=== PATIENT | male | born 1960 | race Caucasian/White ===

== ENCOUNTER 2018-02-12 16:24 | Observation (INO) ==
--- NOTE | 2018-02-12 17:03 | History & Physical Report ---
*Admission Date: 02/12/18 *Chief complaint: Chest pain *History of present illness: 57-year-old white male with history of hypertension, recent opioid withdrawal/ cessation and history of smokeless tobacco use who presented to my office today with chest pressure and pain associated with some palpitations and flushing. He had been seen a couple days ago and EKG was normal at that time in the context of treating some withdrawal symptoms. He has recently had a really rough time with strict use of opioids but has been abstinent for 2 weeks. Couple of days ago he was placed on propranolol, as needed Zofran had been doing well. This afternoon he was driving his grandson home from school and had the onset of chest pressure with flushing, felt like his heart was racing. Once his blood pressure checked again in the office. He was found to be flush, his chest pain in the way of his blood pressure was elevated over a reading 2 days ago. EKG was unchanged. However, given his significant risk factors for cardiac disease, history of hyperlipidemia, family history and tobacco use he has been to the hospital for rule out MO and ongoing cardiology evaluation. [facility] History I have reviewed the patient's past medical history: Yes Medical History: Reports:: Anxiety, Hypertension Comment: Opioid/narcotic addiction Other Surgeries: Yes: No Previous Surgery - *Social History Educational Level: Completed High School Tobacco Type: smokeless tobacco Alcohol Intake: never Substance Use Type: former substance user, opiates Last Used Substance: days (ago) (Last used 2 weeks ago per patient) Review of Systems - Review of Systems Review of systems:: unable to obtain, other, pertinent systems reviewed and negative unless documented below - Eyes Denies blurry vision - ENT Denies poor balance, Denies dizziness - *Cardiovascular Reports chest pain, Reports chest pain at rest, Reports excessive sweating, Reports shortness of breath, Reports rapid, pounding, or irregular heartbeat, Denies leg swelling - *Respiratory Reports chest congestion, Reports cough - *Gastrointestinal Denies abdominal pain, Denies change in stools, Denies heartburn - *Genitourinary Denies difficulty urinating Exam Narrative: Pressure 150/90, pulse rate 88. O2 saturations 97% on room air in the office. Respiratory rate 12. Patient is flushed but otherwise alert, oriented, pleasant. No JVD, carotid bruit. Heart rate is regular without murmurs or gallops. No edema, no clubbing, abdomen soft nontender. Neurologic exam intact. Assessment and Plan (1) Pain in the chest Current visit: Yes Status: Acute Category: Medical Code(s): R07.9 - Chest pain, unspecified We will be to admit observation, cardiac monitor technician. Chest x-ray, EKG, serial enzymes, continue beta blockade. Aspirin therapy, cardiology evaluation.
[2018-02-12 17:31] LABS: Basophils # 0.1 K/mm3 (0-0.2); Basophils % 0.5 % (0.1-2.0); Eosinophils # 0.3 K/mm3 (0.0-0.4); Eosinophils % 2.3 % (0.1-12.0); Hemoglobin 15.6 g/dL (14.1-18.0); Lymphocytes # 3.3 K/mm3 (0.7-4.5); Mean Corpuscular HGB Conc 34.7 g/dL (31.8-35.4); Mean Corpuscular Hemoglobin 31.2 pg (27.0-31.2); Mean Platelet Volume 7.3 fl (7.4-10.4); Monocytes # 0.9 K/mm3 (0.1-1.0); Monocytes % 6.8 % (1.7-9.3); Neutrophils # 8.1 K/mm3 (1.8-7.8); Neutrophils % 64.4 % (37.0-80.0); Platelet Count 291 K/mm3 (142-424); Red Cell Distribution Width 12.4 % (11.5-17.5); White Blood Count 12.6 K/mm3 (4.8-10.8)
[2018-02-12 17:50] LABS: Chol/HDL Ratio 3.4 (1-3.5)
[2018-02-12 17:59] LABS: Anion Gap 8.1 mEq/L (5-15); Blood Urea Nitrogen 21 mg/dL (7-18); Carbon Dioxide 30 mmol/L (21.0-32.0); Chloride 103 mmol/L (98-107); Creatine Kinase 395 U/L (39-308); Glucose 99 mg/dL (74-106); Potassium 4.1 mmoL/L (3.5-5.1); Sodium 137 mmol/L (136-145)
--- NOTE | 2018-02-13 07:02 | Progress Note ---
Internal Medicine - PN: Subj *Date: 02/13/18 *Time: 07:01 Interval history: Patient slept well overnight, denies any chest pain. Reports that resolved after he been in the hospital for several hours. Exam Vital signs and Labs for Last 24 Hours: Temp Pulse Resp BP Pulse Ox 97.7 F 81 16 102/66 98 02/13/18 04:00 02/13/18 04:00 02/13/18 04:00 02/13/18 04:00 02/13/18 04:00 Laboratory Results - last 24 hr 02/12/18 17:20: Triglycerides 276 H, Cholesterol 181, LDL Cholesterol 73, VLDL Cholesterol 55 H, HDL Cholesterol 53, Cholesterol/HDL Ratio 3.4 02/12/18 17:20: WBC 12.6 H, RBC 5.00, Hgb 15.6, Hct 45.0, MCV 90.0, MCH 31.2, MCHC 34.7, RDW 12.4, Plt Count 291, MPV 7.3 L, Neut % (Auto) 64.4, Lymph % (Auto ) 26.0, [place] % (Auto) 6.8, Eos % (Auto) 2.3, Baso % (Auto) 0.5, Neut # (Auto) 8.1 H, Lymph # (Auto) 3.3, [place] # (Auto) 0.9, Eos # (Auto) 0.3, Baso # (Auto) 0.1 02/12/18 17:20: Sodium 137, Potassium 4.1, Chloride 103, Carbon Dioxide 30, Anion Gap 8.1, BUN 21 H, Creatinine 1.03, Estimated Creat Clear 79, Estimated GFR 75, Est GFR ( Amer) 91, Glucose 99, Total Creatine Kinase 395 H, CK- MB (CK-2) 1.4, CK-MB (CK-2) Rel Index 0.4, Troponin I < 0.02 02/12/18 19:55: Troponin I < 0.02 02/12/18 22:55: Troponin I < 0.02 I & O for Last 24 hours: Intake & Output 02/10/18 02/11/18 02/12/18 02/13/18 11:59 11:59 11:59 11:59 Intake Total 10 / 10 Output Total 1200 / 1200 Balance -1190 / -1190 Weight 152 lb 7 oz Narrative: Alert, pleasant, comfortable, lungs clear, heart rate regular. Abdomen soft, no edema. Assessment and Plan (1) Pain in the chest Current visit: Yes Status: Acute Category: Medical Code(s): R07.9 - Chest pain, unspecified - Assessment and plan all Dx Assessment and Plan for all problems:: AK ruled out by enzymes. Given risk factors cardiology consultation today.
--- NOTE | 2018-02-13 07:53 | Pharmacy Consult Notes ---
[facility] Pharmacy VTE Monitoring - Patient Demographics Admission date: 02/12/18 Report Date: 02/13/18 Time: 07:53 Allergies/Adverse Reactions: Patient Allergies No Known Allergies Allergy (Verified 02/12/18 17:17) Height: 1.65 m Weight: 69.144 kg Patient Problems: Current Active Problems Pain in the chest (Acute) - VTE Risk Labs: VTE Related Lab Results Hgb 15.6 g/dL (14.1-18.0) 02/12/18 17:20 Hct 45.0 % (42.0-52.0) 02/12/18 17:20 Plt Count 291 K/mm3 (142-424) 02/12/18 17:20 BUN 21 mg/dL (7-18) H 02/12/18 17:20 Creatinine 1.03 mg/dL (0.70-1.30) 02/12/18 17:20 Estimated Creat Clear 79 mL/min (0-300) 02/12/18 17:20 Was VTE Risk Assessment Performed: Yes VTE Score: 1 VTE Risk Level: Very Low Risk Clinical Trial Participant: No - Prophylaxis VTE Prophylaxis Ordered?: Yes Types of VTE Prophylaxis: TEDS Knee High
--- NOTE | 2018-02-13 10:03 | Consult Report ---
History of Present Illness Consult date: 02/13/18 Requesting physician: Ashkan Ricketts Consult reason: chest pain Chief complaint: chest tightness Additional Medical History:: 1. Hypertension 2. History of opioid addiction for about 12 years, recently weaned off and now clean for about 16 days, 01/2018 3. Family history of coronary artery disease in his mother at age 65 History of present illness: 57-year-old white male with history of hypertension, recent opioid withdrawal/ cessation and history of smokeless tobacco use who presented to my office today with chest pressure and pain associated with some palpitations and flushing. He had been seen a couple days ago and EKG was normal at that time in the context of treating some withdrawal symptoms. He has recently had a really rough time with strict use of opioids but has been abstinent for 2 weeks. Couple of days ago he was placed on propranolol, as needed Zofran had been doing well. This afternoon he was driving his grandson home from school and had the onset of chest pressure with flushing, felt like his heart was racing. Once his blood pressure checked again in the office. He was found to be flush, his chest pain in the way of his blood pressure was elevated over a reading 2 days ago. EKG was unchanged. However, given his significant risk factors for cardiac disease, history of hyperlipidemia, family history and tobacco use he has been to the hospital for rule out MA and ongoing cardiology evaluation. The above per Dr. Ricketts. Cardiac enzymes are returned normal 3. EKG is sinus and unremarkable. [facility] History Medical History: Reports:: Anxiety, Hypertension Denies:: Cancer, Diabetes Mellitus Type 1, Diabetes Mellitus Type 2, MRSA Other Surgeries: Yes: No Previous Surgery, Other (cholecycstectomy laproscopic) Amputation: No Fractures: No - *Social History Educational Level: Completed High School Smoking Status: Former smoker Tobacco Type: cigarettes Smoking End Date: 2012 Alcohol Intake: former Substance Use Type: former substance user Last Used Substance: days (ago) Occupational Status: employed Housing: house Household Members: spouse, children - Psychiatric History Expresses thoughts of harming self/others: None Suicide Plan Description: No Plan Pschychiatric History:: Reports:: Anxiety *Family Hx:: Hyperlipidemia, Hypertension Meds Home Medications Medication Instructions Recorded Confirmed Type Aspirin [Aspir 81] 81 mg PO DAILY 02/12/18 02/12/18 History Propranolol HCl 10 mg PO TID 02/12/18 02/13/18 History Trazodone HCl 100 mg PO HS 02/12/18 02/12/18 History PARoxetine HCl [Paxil] 20 mg PO DAILY 02/13/18 02/13/18 History Allergies Allergy/AdvReac Type Severity Reaction Status Date / Time No Known Allergies Allergy Verified 02/12/18 17:17 Review of Systems - *Cardiovascular Reports chest pain - *Respiratory Reports shortness of breath with activity - *Neurologic Denies unsteadiness, Denies dizziness Exam Vital signs and Labs for Last 24 Hours: Temp Pulse Resp BP Pulse Ox 98.8 F 63 18 113/66 100 02/13/18 07:27 02/13/18 07:27 02/13/18 07:27 02/13/18 07:27 02/13/18 07:27 Laboratory Results - last 24 hr 02/12/18 17:20: Triglycerides 276 H, Cholesterol 181, LDL Cholesterol 73, VLDL Cholesterol 55 H, HDL Cholesterol 53, Cholesterol/HDL Ratio 3.4 02/12/18 17:20: WBC 12.6 H, RBC 5.00, Hgb 15.6, Hct 45.0, MCV 90.0, MCH 31.2, MCHC 34.7, RDW 12.4, Plt Count 291, MPV 7.3 L, Neut % (Auto) 64.4, Lymph % (Auto ) 26.0, [place] % (Auto) 6.8, Eos % (Auto) 2.3, Baso % (Auto) 0.5, Neut # (Auto) 8.1 H, Lymph # (Auto) 3.3, [place] # (Auto) 0.9, Eos # (Auto) 0.3, Baso # (Auto) 0.1 02/12/18 17:20: Sodium 137, Potassium 4.1, Chloride 103, Carbon Dioxide 30, Anion Gap 8.1, BUN 21 H, Creatinine 1.03, Estimated Creat Clear 79, Estimated GFR 75, Est GFR ( Amer) 91, Glucose 99, Total Creatine Kinase 395 H, CK- MB (CK-2) 1.4, CK-MB (CK-2) Rel Index 0.4, Troponin I < 0.02 02/12/18 19:55: Troponin I < 0.02 02/12/18 22:55: Troponin I < 0.02 I & O for Last 24 hours: Intake & Output 02/10/18 02/11/18 02/12/18 02/13/18 11:59 11:59 11:59 11:59 Intake Total Output Total 1200 / 1200 Balance -1190 / -1190 Weight 152 lb 7 oz - *Routine Neck Exam Absent: carotid bruit - *Routine Respiratory Exam Present: CTA bilaterally - *Routine Cardiovascular Exam Present: RRR. Absent: murmur, gallop - *Routine Extremities Exam Absent: edema - *Routine Neurological Exam Present: alert, oriented X3, moving all extremities Assessment and Plan (1) Pain in the chest Current visit: Yes Status: Acute Category: Medical Code(s): R07.9 - Chest pain, unspecified (2) Hypertension Current visit: Yes Status: Acute Category: Medical Code(s): I10 - Essential (primary) hypertension - Assessment and plan all Dx Assessment and Plan for all problems:: 1. Discussed options of stress testing versus cardiac catheterization, patient would prefer to start with a stress test at this time. Proceed with exercise Myoview stress test today. 2. Patient does admit to some medication noncompliance with the propranolol due to fatigue side effects. Would recommend switching this to a single dose of metoprolol succinate 50 mg in the evening and see if he tolerates this and is more compliant with taking it. If not, then could try a alber in the form of bisoprolol which may have less fatigue. 3. Will obtain an echocardiogram if not already ordered.
[2018-02-13 15:42] VITALS: BP 114/71
--- NOTE | 2018-02-13 16:50 | Discharge Summary ---
General - General Admission date: 02/12/18 Discharge date: 02/13/18 HPI HPI: 57-year-old white male with history of hypertension, recent opioid withdrawal/ cessation and history of smokeless tobacco use who presented to my office today with chest pressure and pain associated with some palpitations and flushing. He had been seen a couple days ago and EKG was normal at that time in the context of treating some withdrawal symptoms. He has recently had a really rough time with strict use of opioids but has been abstinent for 2 weeks. Couple of days ago he was placed on propranolol, as needed Zofran had been doing well. This afternoon he was driving his grandson home from school and had the onset of chest pressure with flushing, felt like his heart was racing. Once his blood pressure checked again in the office. He was found to be flush, his chest pain in the way of his blood pressure was elevated over a reading 2 days ago. EKG was unchanged. However, given his significant risk factors for cardiac disease, history of hyperlipidemia, family history and tobacco use he has been to the hospital for rule out MT and ongoing cardiology evaluation. Hospital Course Hospital Course: Patient was admitted, ruled out for myocardial infarction by enzyme and EKG criteria. Telemetry monitoring overnight was uneventful. He was subjected to [employer] stress testing today and did very nicely. Stress testing showed excellent flow, good ejection fraction and no suspicion of ischemic disease. Interestingly, he did much better with metoprolol as far as flushing issues, and no evidence of side effects. Thinking is that possibly his flushing and palpitation issues might of been side effects from propranolol. He will be discharged home as noted below with metoprolol and short-term follow- up in my office. Objective Vital signs: Temp Pulse Resp BP Pulse Ox 98.4 F 69 18 114/71 98 02/13/18 15:41 02/13/18 15:41 02/13/18 15:41 02/13/18 15:41 02/13/18 15:41 no acute distress - *Routine HEENT Exam Head: Present: normocephalic, atraumatic - *Routine Respiratory Exam Present: CTA bilaterally - *Routine Cardiovascular Exam Present: RRR, Normal S1, Normal S2 - *Routine Extremities Exam Present: full ROM, pulses intact. Absent: cyanosis, clubbing, edema Results Labs on day of discharge: Labs from last 24 hours 02/12/18 02/12/18 02/12/18 22:55 19:55 17:20 WBC RBC Hgb Hct MCV MCH MCHC RDW Plt Count MPV Neut % (Auto) Lymph % (Auto) [place] % (Auto) Eos % (Auto) Baso % (Auto) Neut # (Auto) Lymph # (Auto) [place] # (Auto) Eos # (Auto) Baso # (Auto) Sodium 137 Potassium 4.1 Chloride 103 Carbon Dioxide 30 Anion Gap 8.1 BUN 21 H Creatinine 1.03 Estimated Creat Clear 79 Estimated GFR 75 Est GFR ( Amer) 91 Glucose 99 Total Creatine Kinase 395 H CK-MB (CK-2) 1.4 CK-MB (CK-2) Rel Index 0.4 Troponin I < 0.02 < 0.02 < 0.02 Triglycerides Cholesterol LDL Cholesterol VLDL Cholesterol HDL Cholesterol Cholesterol/HDL Ratio 02/12/18 02/12/18 17:20 17:20 WBC 12.6 H RBC 5.00 Hgb 15.6 Hct 45.0 MCV 90.0 MCH 31.2 MCHC 34.7 RDW 12.4 Plt Count 291 MPV 7.3 L Neut % (Auto) 64.4 Lymph % (Auto) 26.0 [place] % (Auto) 6.8 Eos % (Auto) 2.3 Baso % (Auto) 0.5 Neut # (Auto) 8.1 H Lymph # (Auto) 3.3 [place] # (Auto) 0.9 Eos # (Auto) 0.3 Baso # (Auto) 0.1 Sodium Potassium Chloride Carbon Dioxide Anion Gap BUN Creatinine Estimated Creat Clear Estimated GFR Est GFR ( Amer) Glucose Total Creatine Kinase CK-MB (CK-2) CK-MB (CK-2) Rel Index Troponin I Triglycerides 276 H Cholesterol 181 LDL Cholesterol 73 VLDL Cholesterol 55 H HDL Cholesterol 53 Cholesterol/HDL Ratio 3.4 DS: Diagnosis - Discharge Diagnosis (1) Pain in the chest Status: Acute Discharge Plan - Patient Discharge Instructions ACTIVITY: Continue current activity DIET: continue same diet Patient Instructions: Heart-Healthy Diet - Follow up Plan Disposition: Home, Self-Long Term Medications: Home Medications Medication Instructions Recorded Confirmed Type Aspirin [Aspir 81] 81 mg PO DAILY 02/12/18 02/12/18 History Propranolol HCl 10 mg PO TID 02/12/18 02/13/18 History Trazodone HCl 100 mg PO HS 02/12/18 02/12/18 History PARoxetine HCl [Paxil] 20 mg PO DAILY 02/13/18 02/13/18 History Prescriptions/Medication Reconciliation: New Metoprolol Tartrate [Lopressor 50mg tablet] 50 mg PO BID #60 tablet Continue Aspirin [Aspir 81] 81 mg PO DAILY Trazodone HCl 100 mg PO HS PARoxetine HCl [Paxil] 20 mg PO DAILY Discontinued Propranolol HCl 10 mg PO TID
--- NOTE | 2018-02-14 16:36 | Cardiology Report ---
PROCEDURE: 2-D M-mode and color Doppler study INDICATIONS FOR THE TEST: Chest pain+ COPD Heart Murmur Tobacco Smokingex Palpitations+ Fatigue Syncope Edema Hypertension+Diabetes Mellitus Rheumatic Fever SOB+SMALLS+Obesity Hyperlipidemia+ Family History HD+ Additional History PATIENT INFORMATION HEIGHT: 67 WEIGHT: 152 GENDER: Male B/P: 113/66 2-D/M-MODE INTERPRETATION: 2-D MEASUREMENTS OBSERVED VALUES IN CMS Right Ventricular Dimension (RVDd) 2.0 Interventricular Septum (Thickness)(IVsd) 1.0 Left Ventricular Internal Dimensions(LVIDd) 3.9 Left Ventricular Posterior Wall (Thickness)(LVPWd) 1.0 Aortic Root 3.0 Aortic Cusp Separation 2.0 Left Atrial Dimensions (LAD) 2.8 2D 1. Left atrium is qualitatively mildly enlarged, left ventricle is normal size, there is no concentric left ventricular hypertrophy, visually estimated ejection fraction approximately 40-45%, there appears to be hypokinesis involving the distal septum and anteroapical wall. 2. The right atrium and right ventricle are relatively normal size and function. 3. The aortic valve is minimally thickened and calcified. 4. The mitral and tricuspid valvular grossly normal. 5. The pulmonic valve is poorly visualized. 6. No significant pericardial effusion noted. DOPPLER INTERROGATION: Doppler interrogation of the aortic, mitral and tricuspid valvular presence of mild mitral and tricuspid regurgitation, tricuspid and jet velocity insufficient for calculation of the right ventricular systolic pressure, grade 1 diastolic dysfunction seen without tissue Doppler evidence of raised left atrial pressure. CONCLUSION: 1. Qualitatively mildly enlarged left atrium, normal left ventricular size, visually estimated ejection fraction 40-45% with segmental wall motion abnormality described above. Grade 1 diastolic dysfunction seen without tissue Doppler evidence of raised left atrial pressure. 2. Mild mitral and tricuspid regurgitation 3. No significant pericardial effusion noted.
== END 2018-02-13 17:30 | disposition home or self-care (01) ==
LOC: 2ND
PROVIDERS: ADMIT Internal Medicine Adolescent Medicine; ATTEND Internal Medicine Adolescent Medicine

== ENCOUNTER → 2018-04-25 13:24 | Outpatient (POV) | payer BC, SELFPAY | PROVIDERS: Family Provider Internal Medicine Adolescent Medicine; PCP Internal Medicine Adolescent Medicine; Visit Provider Dermatology | DX: Z00.00 Encounter for general adult medical examination without abnormal findings (principal) ==

== ENCOUNTER → 2018-05-21 17:11 | Outpatient (CLI) | payer BC, SELFPAY ==
--- NOTE | 2018-05-21 17:26 | XR_ITS ---
XR knee RT 3V HISTORY: ITS.REASON: RIGHT MEDIAL KNEE PAIN ORDERING PHYSICIAN: Ashkan Ricketts MD PATIENT AGE: 57 years COMPARISON: None FINDINGS: No fracture or dislocation. No lytic or blastic change. Normal mineralization. No significant arthritic changes evident. No other significant findings IMPRESSION: Negative Knee
== END ==
PROVIDERS: Visit Provider Internal Medicine Adolescent Medicine
DX: M25.561 Pain in right knee (principal)
CPT/HCPCS: 73562

== ENCOUNTER → 2020-10-13 17:11 | Outpatient (CLI) | payer BC, SELFPAY ==
[2020-10-13 17:54] LABS: Basophils # 0.1 K/mm3 (0-0.2); Basophils % 1.3 % (0.1-2.0); Eosinophils # 0.1 K/mm3 (0.0-0.4); Eosinophils % 1.3 % (0.1-12.0); Lymphocytes # 1.9 K/mm3 (0.7-4.5); Mean Corpuscular HGB Conc 34.2 g/dL (31.8-35.4); Mean Corpuscular Hemoglobin 30.7 pg (27.0-31.2); Mean Corpuscular Volume 89.9 fl (80-94); Mean Platelet Volume 7.4 fl (7.4-10.4); Monocytes # 0.6 K/mm3 (0.1-1.0); Monocytes % 13.2 % (1.7-9.3); Neutrophils # 1.9 K/mm3 (1.8-7.8); Neutrophils % 42.1 % (37.0-80.0); Platelet Count 180 K/mm3 (142-424); Red Blood Count 4.89 M/mm3 (4.60-6.20); Red Cell Distribution Width 13.4 % (11.5-17.5); White Blood Count 4.5 K/mm3 (4.8-10.8)
[2020-10-13 18:22] LABS: Coronavirus 19 IgG Antibody Negative (Negative); Coronavirus 19 IgM Antibody Negative (Negative)
[2020-10-13 20:41] LABS: Chloride 102 mmol/L (98-107); Potassium 4.4 mmoL/L (3.5-5.1); Sodium 140 mmol/L (136-145)
[2020-10-13 20:43] LABS: Alanine Aminotransferase 35 U/L (12-78); Alkaline Phosphatase 82 U/L (38-126); Aspartate Amino Transferase 45 U/L (17-59); Bilirubin,Total 0.5 mg/dl (0.2-1.3); Blood Urea Nitrogen 13 mg/dl (9-20); Estimated Glomerular Filt Rate 77 ml/min (>60); GFR (African American) 93 ML/MIN (>60)
[2020-10-13 20:44] LABS: Albumin Level 4.2 g/dl (3.5-5.0); Albumin/Globulin Ratio 1.5 (1.1-1.8); Anion Gap 11.4 mEq/L (5-15); Carbon Dioxide 31 mmol/L (22.0-30.0); Globulin 2.8 g/dL (1.3-3.2); Glucose 88 mg/dl (74-100)
--- NOTE | 2020-10-15 15:50 | PC.NURSE ---
pt called requesting info on his covid test after his was here today and was told she was positive. pt also gave up dated phone numbers which were given to admissions to correct in pt file.
== END ==
PROVIDERS: PCP Internal Medicine Adolescent Medicine; Visit Provider Internal Medicine Adolescent Medicine
DX: Z20.828 Contact with and (suspected) exposure to other viral communicable diseases (principal); U07.1 COVID-19
CPT/HCPCS: 36415; 80053; 85025; 86328; U0003

== ENCOUNTER 2020-10-25 15:55 | Emergency (ER) | payer BC, SELFPAY ==
[2020-10-25 16:51] VITALS: BP 137/86; PULSE 82; RESP 19; TEMP 36.6; O2SAT 97; BMI 25.0
--- NOTE | 2020-10-25 16:53 | HMH.EDUTC ---
[facility] Disposition Clinical Impression: Encounter for laboratory testing for COVID-19 virus Disposition: Home, Self-Care Condition on Discharge: Good Instructions: Preventing the Spread of Coronavirus Discharge Instructions Additional Instructions: You were tested for today for COVID19 your test result should be back in the next 24-48 hours, you may call to the [facility] to see if your test results are back in the next 48 hours [phone] [facility] hours are 9am-9pm You was given a handout with instructions for Self Quarantine and Self isolation for while you wait on test results and what to do if they are positive If you are positive the Health Dept will be contacting you also May return to work when cleared by Health Dept Referrals: Ashkan Ricketts MD [Primary Care Provider] - As needed Forms: Work/School Release Time of Disposition: 16:56 Medical Decision Making - Kennedy Inquiry Pt receiving controlled substance: No [place] was queried for this patient: No Vital Signs: 10/25/20 16:51 Temperature 97.8 F Temperature Source Oral Pulse Rate [Left] 82 Respiratory Rate 19 Blood Pressure [Right Arm] 137/86 Blood Pressure Mean [Right Arm] 103 Blood Pressure Source [Right Arm] Automatic Cuff Blood Pressure Position [Right Arm] Sitting 02 Sat by Pulse Oximetry 97 Oxygen Delivery Method Room Air Orders (Tests/Meds): ORDERS Category Date Time Status Covid-19 Nasal PCR Sendout [facility] 10/25/20 15:57 Ordered [facility] HPI - General Stated complaint: covid test Time Seen by Provider: 10/25/20 16:53 Mode of Arrival: Ambulatory Source of Information: Patient Limitations: No Limitations Description of Symptoms (Recalled from Triage Doc. by RN): Covid test HEENT Symptoms (Recalled from RN notes): No Resp Symptoms (Recalled from RN notes): No Skin Symptoms (Recalled from RN notes): No MS Symptoms (Recalled from RN notes): No Functional Status (Recalled from RN notes): wnl - History of Present Illness Provider Complaint: Patient state that he tested positive for COVID a couple weeks ago and has been on quarantine State that health Dept told him today that he was released and could go back to work but he was told he had to have another COVID test before returning to work so he came in to get one Denies any symptoms - Related Data Home Medications Medication Instructions Recorded Confirmed Aspirin [Aspir 81] 81 mg PO DAILY 02/12/18 07/04/19 Trazodone HCl 100 mg PO HS 02/12/18 07/04/19 PARoxetine HCl [Paxil] 20 mg PO DAILY 02/13/18 07/04/19 carvediloL [Carvedilol 6.25mg Tab] 6.25 mg PO BID 06/25/19 07/04/19 Allergies Allergy/AdvReac Type Severity Reaction Status Date / Time No Known Allergies Allergy Verified 07/04/19 08:15 - Worker's Comp Is this a Worker's Comp case?: No Is this an [facility] Worker's Comp?: No Is this a [facility] Worker's Comp?: No [facility] History - Hepatitis A Screen Drug use history?: No High risk sexual behaviors?: No History of sexually transmitted infection?: No Currently employed?: No Childcare worker?: No Do you have indoor plumbing?: No Do you have electricity?: No Attestation statement:: This patient has been screened for Hepatitis A risk factors. I have reviewed the patient's past medical history: Yes Medical History: Reports:: Anxiety, Hypertension Denies:: Cancer, Diabetes Mellitus Type 1, Diabetes Mellitus Type 2, Internal Pacemaker, Lung Disease, MRSA, Seizures Comment: Opioid/narcotic addiction Other Surgeries: Yes: No Previous Surgery, Other (cholecycstectomy laproscopic). No: Pacemaker Amputation: No Fractures: No - Social History Smoking Status: Former smoker Tobacco Type: cigarettes Alcohol Intake: former Substance Use Type: former substance user Occupational Status: employed Housing: house Household Members: spouse, children - Psychiatric History Pschychiatric History:: Reports:: Anxiety Family Hx:: Hyperlipidemia, Hypertension ROS Obtained: Yes All
[2020-10-25 16:56] VITALS: BP 137/86; PULSE 82; RESP 19; TEMP 36.6; O2SAT 97
[2020-10-28 09:11] LABS: Covid-19 Nasal PCR Sendout Lex INDETERMINATE
== END 2020-10-25 17:06 | disposition home or self-care (01) ==
PROVIDERS: Emergency Provider Nurse Practitioner; PCP Internal Medicine Adolescent Medicine
DX: Z20.828 Contact with and (suspected) exposure to other viral communicable diseases (principal); I10 Essential (primary) hypertension; F41.8 Other specified anxiety disorders; Z79.899 Other long term (current) drug therapy
CPT/HCPCS: 99201; U0004

== ENCOUNTER → 2020-12-01 09:44 | Outpatient (CLI) | payer BC, SELFPAY ==
[2020-12-01 10:14] LABS: Basophils # 0.1 K/mm3 (0-0.2); Basophils % 0.7 % (0.1-2.0); Eosinophils # 0.1 K/mm3 (0.0-0.4); Eosinophils % 0.7 % (0.1-12.0); Hematocrit 46.7 % (42.0-52.0); Hemoglobin 15.3 g/dL (14.1-18.0); Lymphocytes # 1.3 K/mm3 (0.7-4.5); Lymphocytes % 14.9 % (10-50); Mean Corpuscular HGB Conc 32.7 g/dL (31.8-35.4); Mean Corpuscular Hemoglobin 30.8 pg (27.0-31.2); Mean Corpuscular Volume 94.2 fl (80-94); Mean Platelet Volume 7.1 fl (7.4-10.4); Monocytes # 0.5 K/mm3 (0.1-1.0); Monocytes % 5.5 % (1.7-9.3); Neutrophils # 6.9 K/mm3 (1.8-7.8); Neutrophils % 78.3 % (37.0-80.0); Platelet Count 269 K/mm3 (142-424); Red Blood Count 4.95 M/mm3 (4.60-6.20); Red Cell Distribution Width 13.8 % (11.5-17.5); White Blood Count 8.8 K/mm3 (4.8-10.8)
[2020-12-01 11:26] LABS: Anion Gap 11.5 mEq/L (5-15); Blood Urea Nitrogen 14 mg/dl (9-20); Calcium 9.9 mg/dl (8.4-10.2); Carbon Dioxide 31 mmol/L (22.0-30.0); Chloride 100 mmol/L (98-107); Estimated Glomerular Filt Rate 87 ml/min (>60); GFR (African American) 105 ML/MIN (>60); Glucose 114 mg/dl (74-100); Potassium 4.5 mmoL/L (3.5-5.1); Sodium 138 mmol/L (136-145)
[2020-12-01 11:57] LABS: Thyroid Stimulating Hormone 1.85 uIU/mL (0.465-4.68)
== END ==
PROVIDERS: Visit Provider Internal Medicine Adolescent Medicine
DX: R00.2 Palpitations (principal); I10 Essential (primary) hypertension
CPT/HCPCS: 36415; 80048; 84443; 85025

== ENCOUNTER → 2022-01-27 07:31 | Outpatient (CLI) | payer BC, SELFPAY ==
--- NOTE | 2022-01-27 07:38 | CA_ITS ---
FINAL REPORT TECHNIQUE: Color Doppler, duplex Doppler and compression sonography of the left lower extremity deep venous systems was performed. CLINICAL HISTORY: .LLE pain 3-4 week popliteal area down into calf. HTN FINDINGS: There is no evidence of deep venous thrombosis from the level of the groin to the calf. The veins are patent and compressible. IMPRESSION: No evidence of deep venous thrombosis left lower extremity. Reviewed, Interpreted and Dictated by Nabil Rojas III, MD Transcribed by Damaris Fernandez Authenticated by Nabil Rojas III, MD on 01/27/2022 11:01:18 AM [facility]
== END ==
PROVIDERS: PCP Internal Medicine Adolescent Medicine; Visit Provider Nurse Practitioner Family
DX: M79.662 Pain in left lower leg (principal); M79.89 Other specified soft tissue disorders
CPT/HCPCS: 93971

== ENCOUNTER → 2022-12-11 14:30 | Outpatient (CLI) | payer BC, SELFPAY ==
[2022-12-11 17:49] LABS: Basophils # 0.1 K/mm3 (0-0.2); Basophils % 1.4 % (0.1-2.0); Eosinophils # 0.3 K/mm3 (0.0-0.4); Eosinophils % 4.1 % (0.1-12.0); Hematocrit 43.4 % (42.0-52.0); Lymphocytes % 37.2 % (10-50); Mean Corpuscular HGB Conc 34.6 g/dL (31.8-35.4); Mean Corpuscular Hemoglobin 32.2 pg (27.0-31.2); Mean Corpuscular Volume 93.2 fl (80-94); Mean Platelet Volume 8.3 fl (7.4-10.4); Monocytes # 0.5 K/mm3 (0.1-1.0); Monocytes % 5.7 % (1.7-9.3); Neutrophils # 4.2 K/mm3 (1.8-7.8); Neutrophils % 51.6 % (37.0-80.0); Platelet Count 275 K/mm3 (142-424); Red Blood Count 4.66 M/mm3 (4.60-6.20); Red Cell Distribution Width 13.2 % (11.5-17.5); White Blood Count 8.1 K/mm3 (4.8-10.8)
[2022-12-11 18:03] LABS: Alanine Aminotransferase 40 U/L (12-78); Albumin Level 4.5 g/dl (3.5-5.0); Albumin/Globulin Ratio 1.5 (1.1-1.8); Alkaline Phosphatase 95 U/L (38-126); Anion Gap 10.7 mEq/L (5-15); Aspartate Amino Transferase 42 U/L (17-59); Bilirubin,Total 0.5 mg/dl (0.2-1.3); Blood Urea Nitrogen 18 mg/dl (9-20); Calcium 9.2 mg/dl (8.4-10.2); Carbon Dioxide 31 mmol/L (22.0-30.0); Chloride 102 mmol/L (98-107); Estimated Glomerular Filt Rate 86 ml/min (>60); GFR (African American) 104 ML/MIN (>60); Glucose 118 mg/dl (74-100); Potassium 4.7 mmoL/L (3.5-5.1); Sodium 139 mmol/L (136-145); Total Protein,Serum 7.5 g/dl (6.3-8.2)
[2022-12-11 18:34] LABS: Prostate Specific Ag Screen 1.2 ng/ml (0.0-4.0)
== END ==
PROVIDERS: PCP Family Medicine; Visit Provider Family Medicine
DX: N40.1 Benign prostatic hyperplasia with lower urinary tract symptoms (principal); I10 Essential (primary) hypertension; Z12.5 Encounter for screening for malignant neoplasm of prostate
CPT/HCPCS: 80053; 85025; G0103

== ENCOUNTER 2023-12-28 20:11 | Outpatient (CLI) | payer BC, SELFPAY ==
[2024-01-02 16:49] LABS: Basophils % 0.5 % (0.1-2.0); Eosinophils # 0.5 K/mm3 (0.0-0.4); Eosinophils % 6.2 % (0.1-12.0); Hemoglobin 15.4 g/dL (14.1-18.0); Lymphocytes # 2.4 K/mm3 (0.7-4.5); Lymphocytes % 31.9 % (10-50); Mean Corpuscular HGB Conc 34.3 g/dL (31.8-35.4); Mean Corpuscular Hemoglobin 31.5 pg (27.0-31.2); Mean Corpuscular Volume 91.8 fl (80-94); Mean Platelet Volume 9.5 fl (7.4-10.4); Monocytes # 0.6 K/mm3 (0.1-1.0); Monocytes % 8.4 % (1.7-9.3); Platelet Count 298 K/mm3 (142-424); Red Cell Distribution Width 13.5 % (11.5-17.5); White Blood Count 7.6 K/mm3 (4.8-10.8)
[2024-01-02 16:57] LABS: Alanine Aminotransferase 34 U/L (12-78); Albumin Level 4.6 g/dl (3.5-5.0); Albumin/Globulin Ratio 1.6 (1.1-1.8); Alkaline Phosphatase 101 U/L (38-126); Anion Gap 10.8 mEq/L (5-15); Aspartate Amino Transferase 44 U/L (17-59); Bilirubin,Total 1.2 mg/dl (0.2-1.3); Blood Urea Nitrogen 16 mg/dl (9-20); Calcium 9.6 mg/dl (8.4-10.2); Carbon Dioxide 31 mmol/L (22.0-30.0); Chloride 104 mmol/L (98-107); Chol/HDL Ratio 3.8 (1-3.5); Cholesterol 177 mg/dl (140-200); Estimated Glomerular Filt Rate 86 ml/min (>60); GFR (African American) 104 ML/MIN (>60); Globulin 2.8 g/dL (1.3-3.2); Glucose 102 mg/dl (74-100); HDL Cholesterol 46 mg/dl (40-60); Potassium 4.8 mmoL/L (3.5-5.1); Sodium 141 mmol/L (136-145); Total Protein,Serum 7.4 g/dl (6.3-8.2); Triglycerides 71 mg/dl (30-150); VLDL Cholesterol 14 mg/dL (0-40)
[2024-01-02 17:27] LABS: Prostate Specific Ag, Diagnost 1.53 ng/ml (0.0-4.0); Thyroid Stimulating Hormone 1.45 uIU/mL (0.465-4.68)
[2024-01-02 18:16] LABS: Hemoglobin A1C 5.8 % (4.0-6.0)
== END 2023-12-28 23:59 ==
LOC: LAB.DROPOF 01-02 20:12
PROVIDERS: PCP Nurse Practitioner Family; Visit Provider Nurse Practitioner Family
DX: I10 Essential (primary) hypertension (principal); R30.0 Dysuria; Z87.891 Personal history of nicotine dependence
CPT/HCPCS: 80053; 80061; 83036; 84153; 84443; 85025